=== PATIENT | male | born 1955 | race Caucasian/White ===

== ENCOUNTER 2019-04-21 09:16 | Emergency (ER) | payer OTHER ==
[~2019-04-21] VITALS: Ht 160 cm; Wt 82.3 kg
[2019-04-21 09:23] VITALS: BP 151/81
--- NOTE | 2019-04-21 09:50 | NUR ---
C/O RECTAL PAIN S/P COLONOSCOPY X >1 WK AGO--- WITH BRIGHT RED BLOOD PER RECTUM
--- NOTE | 2019-04-21 09:50 | NUR ---
Dashawn desir in EDM - 04/21/19 at 1347 by GRICEL c/o pain swelling to right knee s/p squat down to pick object from floor when hear multiple cracking sounds and loss to bear weight onto rle----
[2019-04-21] MEDS ORDERED: KETOROLAC 60 MG/2 ML VIAL IM ONE ×2 (10:55→12:42)
--- NOTE | 2019-04-21 11:00 | NUR ---
PT C/O INCREASED PAIN, DR GUTIERRES MADE AWARE. WILL CONTINUE TO MONITOR
--- NOTE | 2019-04-21 13:46 | NUR ---
PT LAYING IN BED WITH EYES CLOSED. RR EVEN AND UNLABORED. VISIBLE RISE AND FALL OF THE CHEST. VSS. WILL CONTINUE TO MONITOR
[2019-04-21] MEDS ORDERED: HYDROcodone/APAP 5/325 MG 1 TAB TAB PO ONE (14:15)
--- NOTE | 2019-04-21 14:24 | NUR ---
PT STATES HE HAS A WAY HOME AFTER BEING MEDICATED WITH NORCO.
[2019-04-21 14:39] VITALS: BP 151/81
--- NOTE | 2019-04-21 14:41 | NUR ---
Patient discharged with v/s stable. Written and verbal after care instructions given and explained. Patient alert, oriented and verbalized understanding of instructions. Ambulatory with steady gait. All questions addressed prior to discharge. ID band removed. Patient advised to follow up with PMD. Rx of NORCO, COLACE, HEMMORHOIDAL CREAM given. Patient educated on indication of medication including possible reaction and side effects. Opportunity to ask questions provided and answered.
== END 2019-04-21 14:35 | disposition home or self-care (01) ==
LOC: MED 09:16
DX: K60.2 Anal fissure, unspecified (principal); K64.9 Unspecified hemorrhoids; Z98.890 Other specified postprocedural states
CPT/HCPCS: 71045; 74018; 93005; 96372; 99284; J1885; Q0092